=== PATIENT | male | born 1975 | race Caucasian/White ===

== ENCOUNTER 2019-01-27 14:52 | Emergency (ER) | payer OTHER ==
[2019-01-27] MEDS ORDERED: Fluorescein 1 MG Ophth Strip EYERT ONE (15:08)
[2019-01-27] MEDS ORDERED: Proparacaine 0.5% Ophth Soln 15 ML Bottle EYERT PRN (15:08)
[2019-01-27] MEDS ORDERED: Take Home: Gentamicin 0.3% Ophth Soln 5 ML, 1 Bottle Pack EYEBOTH ONE (15:25)
[2019-01-27] MEDS ORDERED: Take Home: Diclofenac Sodium 0.1% Ophth Soln 5 ML, 1 Bottle Pack EYEBOTH ONE (15:25)
--- NOTE | 2019-01-27 15:38 | EDM.PDOC ---
ED HPI GENERAL MEDICAL PROBLEM - General Chief Complaint: Eye Problems Stated Complaint: EYE INFECTION Time Seen by Provider: 01/27/19 15:00 Source of Information: Reports: Patient History Limitations: Reports: No Limitations - History of Present Illness INITIAL COMMENTS - FREE TEXT/NARRATIVE: Pt. presents to ER with complaints of R eye pain. Pt. states that he developed onset of eye pain this morning shortly after he woke up. Denies any known ocular trauma. Denies any acute vision loss or change. Pt. states that he feels as though he has something in his eye in the area of the R medial canthus. He states that he not not been in any windy environments and denies doing any grinding or other activity that may have caused injury to the eye. Onset: Today Onset Date: 01/27/19 Location: Reports: Face, Other (R eye) Quality: Reports: Burning Severity: Moderate - Related Data Allergies Allergy/AdvReac Type Severity Reaction Status Date / Time amoxicillin Allergy Other Verified 01/27/19 15:07 Sulfa (Sulfonamide Allergy Other Verified 01/27/19 15:07 Antibiotics) Home Meds: Home Meds Gabapentin [Neurontin] 800 mg PO QID 01/27/19 [History] Lisinopril 20 mg PO DAILY 01/27/19 [History] Simvastatin 20 mg PO DAILY 01/27/19 [History] metFORMIN HCl [Metformin HCl] 1,000 mg PO DAILY 01/27/19 [History] Past Medical History Cardiovascular History: Reports: High Cholesterol, Hypertension Neurological History: Reports: Neuropathy, Diabetic Psychiatric History: Reports: Anxiety, Depression Endocrine/Metabolic History: Reports: Diabetes, Type II Social & Family History - Tobacco Use Smoking Status *Q: Never Smoker ED ROS GENERAL - Review of Systems Review Of Systems: See Below Constitutional: Reports: No Symptoms HEENT: Reports: Eye Discharge, Eye Pain Respiratory: Reports: No Symptoms Cardiovascular: Reports: No Symptoms Endocrine: Reports: No Symptoms GI/Abdominal: Reports: No Symptoms : Reports: No Symptoms Musculoskeletal: Reports: No Symptoms Skin: Reports: No Symptoms Neurological: Reports: No Symptoms Psychiatric: Reports: No Symptoms Hematologic/Lymphatic: Reports: No Symptoms Immunologic: Reports: No Symptoms ED EXAM GENERAL W FULL EYE - Physical Exam Exam: See Below Exam Limited By: No Limitations General Appearance: Alert, WD/WN, No Apparent Distress Eye Exam: Right Eye: Conjunctival Injection, Corneal Abrasion, Bilateral Eye: EOMI, Normal Fundi, Normal Inspection, PERRL Visual Acuity (R) 20/: 20 Visual Acuity (L) 20/: 20 With Correction: No Eyelids: Right: Erythema Conjunctiva & Sclera: Right: Conjunctival Edema Cornea Exam: Right: Corneal Abrasion (4-5 o'clock position R eye. No foreign body.), Examined with Flourescein Extraocular Movements: Bilateral: Intact Pupils: Normal Accommodation Pupillary Size: Bilateral: 3 mm Pupillary Reaction: Bilateral: Brisk Anterior Chamber: Bilateral: Hyphema Posterior Chamber: Bilateral: Normal Funduscopic Course - Vital Signs Last Recorded V/S: Last Vital Signs Temp 36.4 C 01/27/19 14:57 Pulse 90 01/27/19 14:57 Resp 16 01/27/19 14:57 BP 124/76 01/27/19 14:57 Pulse Ox 96 01/27/19 14:57 - Orders/Labs/Meds Orders: Active Orders 24 hr Category Date Time Status Proparacaine [Proparacaine 0.5% Ophth Soln] Med 01/27/19 15:08 Active 1 ml EYERT ASDIRECTED PRN Medication Orders Proparacaine HCl (Proparacaine 0.5% Ophth Soln) 1 ml EYERT ASDIRECTED PRN PRN Reason: Other Meds: Medications Generic Name Dose Route Start Last Admin Trade Name Freq PRN Reason Stop Dose Admin Proparacaine HCl 1 ml 01/27/19 15:08 Proparacaine 0.5% Ophth Soln EYERT ASDIRECTED PRN Other Discontinued Medications Generic Name Dose Route Start Last Admin Trade Name Freq PRN Reason Stop Dose Admin Diclofenac Sodium 1 packet 01/27/19 15:25 Take Home: Diclofenac 0.1% Ophth, 1 Bottle EYEBOTH 01/27/19 15:26 ONETIME ONE Fluorescein Sodium 1 mg 01/27/19 15:08 Ful-Heather EYERT 01/27/19 15:09 ONETIME ONE Gentamicin Sulfate 1 packet 01/27/19 15:25 Take Home: Gentamicin 0.3% Ophth Soln, 1 Kari EYEBOTH 01/27/19 15:26 ONETIME ONE Departure - Departure Time of Disposition: 03:40 Disposition: Home, Self-Care 01 Clinical Impression: Corneal abrasion - Discharge Information Instructions: Corneal Abrasion, [id number] Referrals: Naida Templeton PA-C [Primary Care Provider] - Forms: ED Department Discharge Additional Instructions: Gentamycin eye drops 1 drop 5 times daily for 7 days Diclofenac eye drops 1 drop 4 times daily for 5 days Follow-up at eye clinic of choice in 1-2 days for slit lamp examination. Take care not to injury or get any material or chemical in the eye. Return to ER if you have any acute vision loss or change. - My Orders Last 24 Hours: My Active Orders 01/27/19 15:08 Proparacaine [Proparacaine 0.5% Ophth Soln] 1 ml EYERT ASDIRECTED PRN - Assessment/Plan Last 24 Hours: My Active Orders 01/27/19 15:08 Proparacaine [Proparacaine 0.5% Ophth Soln] 1 ml EYERT ASDIRECTED PRN Plan: Gentamycin eye drops 1 drop 5 times daily for 7 days Diclofenac eye drops 1 drop 4 times daily for 5 days Follow-up at eye clinic of choice in 1-2 days for slit lamp examination. Take care not to injury or get any material or chemical in the eye. Return to ER if you have any acute vision loss or change.
== END 2019-01-27 15:44 | disposition home or self-care (01) ==
LOC: VM.ED 14:52
DX: S05.01XA Injury of conjunctiva and corneal abrasion without foreign body, right eye, initial encounter (principal); F41.9 Anxiety disorder, unspecified; F32.9 Major depressive disorder, single episode, unspecified; E11.40 Type 2 diabetes mellitus with diabetic neuropathy, unspecified; I10 Essential (primary) hypertension; E78.00 Pure hypercholesterolemia, unspecified; Z79.84 Long term (current) use of oral hypoglycemic drugs; Z79.899 Other long term (current) drug therapy; Z88.1 Allergy status to other antibiotic agents; Z88.2 Allergy status to sulfonamides; X58.XXXA Exposure to other specified factors, initial encounter
CPT/HCPCS: 99282; 99283; A9270

== ENCOUNTER 2019-08-07 15:56 | Emergency (ER) | payer OTHER, MEDICARE ==
--- NOTE | 2019-08-07 16:28 | EDM.PDOC ---
ED HPI GENERAL MEDICAL PROBLEM - General Chief Complaint: Respiratory Problem Stated Complaint: BRONCHITIS Time Seen by Provider: 08/07/19 16:08 - History of Present Illness INITIAL COMMENTS - FREE TEXT/NARRATIVE: Travis is a 44 y/o male who comes to the ER with a cough. He has been il with a cough for the last few weeks and was seen at the [facility] and given cough syrup. He was told it was viral. The last 2 days he seems to have gotten worse and has had a fever and been very sweaty. His coughing his worse and makes him vomit. He has had body aches and overall just doesn't feel well. - Related Data Allergies Allergy/AdvReac Type Severity Reaction Status Date / Time amoxicillin Allergy Other Verified 08/07/19 16:14 Sulfa (Sulfonamide Allergy Other Verified 08/07/19 16:14 Antibiotics) Home Meds: Home Meds Gabapentin [Neurontin] 800 mg PO QID 01/27/19 [History] Lisinopril 20 mg PO DAILY 01/27/19 [History] Simvastatin 20 mg PO DAILY 01/27/19 [History] metFORMIN HCl [Metformin HCl] 1,000 mg PO DAILY 01/27/19 [History] Azithromycin 500 gm MC DAILY #3 powder 08/07/19 [Rx] Codeine/Promethazine [Phenergan with Codeine] 5 - 10 ml PO Q6HR PRN #240 ml 06/14 [Rx] Past Medical History Cardiovascular History: Reports: High Cholesterol, Hypertension Neurological History: Reports: Neuropathy, Diabetic Psychiatric History: Reports: Anxiety, Depression Endocrine/Metabolic History: Reports: Diabetes, Type II ED ROS GENERAL - Review of Systems Review Of Systems: See Below Constitutional: Reports: Fever, Fatigue HEENT: Reports: Rhinitis Respiratory: Reports: Cough Cardiovascular: Reports: No Symptoms Endocrine: Reports: No Symptoms GI/Abdominal: Reports: Vomiting : Reports: No Symptoms Musculoskeletal: Reports: Other (Body Aches) Skin: Reports: Diaphoresis Neurological: Reports: Headache Psychiatric: Reports: No Symptoms Hematologic/Lymphatic: Reports: No Symptoms Immunologic: Reports: No Symptoms ED EXAM, GENERAL - Physical Exam Exam: See Below General Appearance: Alert, WD/WN, No Apparent Distress (Adult male, appears to not feel well.) Eye Exam: Bilateral Eye: PERRL Ears: Normal External Exam, Normal Canal, Hearing Grossly Normal, Normal TMs Nose: Normal Inspection, Normal Mucosa, Clear Rhinorrhea Throat/Mouth: Normal Lips, Normal Teeth, Normal Voice, No Airway Compromise ( Pharynx slightly pink, clear mucous noted, tonsils 2+), Other Head: Atraumatic, Normocephalic Neck: Normal Inspection, Supple, Non-Tender Respiratory/Chest: No Respiratory Distress, Lungs Clear, Normal Breath Sounds ( hacky cough noted), Chest Non-Tender, Other Cardiovascular: Normal Peripheral Pulses, Regular Rate, Rhythm, No Edema, No Murmur GI/Abdominal: Normal Bowel Sounds, Soft, Non-Tender (Male) Exam: Deferred Rectal (Males) Exam: Deferred Extremities: Normal Inspection Neurological: Alert, Oriented, CN II-XII Intact, Normal Cognition, Normal Gait, No Motor/Sensory Deficits Psychiatric: Normal Affect, Normal Mood Skin Exam: Dry, Intact, Normal Color, Diaphoretic (slightly), Other (Hot) Lymphatic: No Adenopathy Course - Vital Signs Text/Narrative:: 1605 The patient was seen by the [facility]. Labs and CXR ordered. 1650 Labs reviewed, discussed with patient. Suspect Influenza-like illness with rapid test being neg. Will treat with Azithromycin due to history of 3 weeks cough and lung not working as well due to nerve injury. Patient and family given discharge instructions and sent home in stable condition. - Orders/Labs/Meds Orders: Active Orders 24 hr Category Date Time Status Chest 2V [CR] Stat Exams 08/07/19 16:14 Ordered CBC WITH AUTO DIFF [HEME] Stat Lab 08/07/19 16:14 Ordered INFLUENZA A+B AG SCREEN [RM] Stat Lab 08/07/19 16:14 Ordered - Radiology Interpretation Free Text/Narrative:: CXR=note perihilar changes in the both lungs, note left diaphragm sits higher than the right Departure - Departure Time of Disposition: 16:55 Disposition: Home, Self-Care 01 Condition: Good Clinical Impression: Influenza-like illness, Bronchitis - Discharge Information *PRESCRIPTION DRUG MONITORING PROGRAM REVIEWED*: Not Applicable *COPY OF PRESCRIPTION DRUG MONITORING REPORT IN PATIENT SIDNEY: Not Applicable Prescriptions: Codeine/Promethazine [Phenergan with Codeine] 5 - 10 ml PO Q6HR PRN #240 ml PRN Reason: Cough Azithromycin 500 gm MC DAILY #3 powder Instructions: Influenza, Adult, [id number], Acute Bronchitis, Adult, Easy-to- Read Referrals: Naida Templeton PA-C [Primary Care Provider] - Additional Instructions: -Use ibuprofen/acetaminophen as needed for fever and pain -Phenergan with Codeine 5-10 ml oral every 6 hours as needed for cough #240ml ( Rx) -Azithromycin 500mg oral daily x 3 days (Rx) -Use Albuterol inhaler as needed that you have at home -Use any over the counter meds that are helpful -Rest -Stay well hydrated -Follow up with your PCP if you have further concerns or return to the ER as needed - My Orders Last 24 Hours: My Active Orders 08/07/19 16:14 Chest 2V [CR] Stat CBC WITH AUTO DIFF [HEME] Stat INFLUENZA A+B AG SCREEN [RM] Stat - Assessment/Plan Last 24 Hours: My Active Orders 08/07/19 16:14 Chest 2V [CR] Stat CBC WITH AUTO DIFF [HEME] Stat INFLUENZA A+B AG SCREEN [RM] Stat
--- NOTE | 2019-08-08 08:05 | CR ---
[id number] RAD/RAD Chest PA And Lateral EXAM: RAD Chest PA And Lateral CLINICAL DATA: COUGH COMPARISON: NO PREVIOUS SIMILAR EXAM IS AVAILABLE. FINDINGS: Elevation of the left mid hemidiaphragm is seen The lungs otherwise are clear The cardiac silhouette is mildly prominent Correlation with previous studies would be helpful Surgical changes of the shoulder are seen IMPRESSION: ELEVATION OF LEFT HEMIDIAPHRAGM. CORRELATION WITH PREVIOUS FILMS NEEDED IF NO OLD FILMS ARE AVAILABLE, CONSIDER CT CHEST AND ABDOMEN Minesh Magana MD 08/08/19 0803 Thank you for allowing us to participate in the care of your patient.
== END 2019-08-07 17:30 | disposition home or self-care (01) ==
LOC: VM.ED 15:56
DX: J40 Bronchitis, not specified as acute or chronic (principal); I10 Essential (primary) hypertension; E11.40 Type 2 diabetes mellitus with diabetic neuropathy, unspecified; F41.9 Anxiety disorder, unspecified; F32.9 Major depressive disorder, single episode, unspecified; Z79.84 Long term (current) use of oral hypoglycemic drugs; Z79.899 Other long term (current) drug therapy; Z88.0 Allergy status to penicillin; Z88.2 Allergy status to sulfonamides
CPT/HCPCS: 36415; 71046; 85025; 87804; 87804-59; 99283-25; 99283-GF